=== PATIENT | female | born 1925 | race Caucasian/White ===

== ENCOUNTER 2016-07-19 22:10 | Emergency (ER) | payer MEDICARE, OTHER ==
[2016-07-19 20:07] LABS: BASOPHILS 1.2 %; BASOPHILS ABSOLUTE 0.04 10/3/uL (0.0-0.16); EOSINOPHILS 1.4 %; EOSINOPHILS ABSOLUTE 0.05 10/3/uL (0.0-0.53); ER CBC TAT 0 Hrs 05 Mins; HEMATOCRIT 40.6 % (36.0-48.0); HEMOGLOBIN 13.9 g/dL (12.0-16.0); IMMATURE GRANULOCYTES 0.3 %; IMMATURE GRANULOCYTES ABSOLUTE 0.01 10/3/uL (0.0-0.11); LYMPHOCYTES 20.6 %; LYMPHOCYTES ABSOLUTE 0.71 10/3/uL (0.67-4.30); MEAN CORPUS HGB CONC 34.2 g/dL (32.0-36.0); MEAN CORPUSCULAR HEMOGLOB 34.2 pg (26.0-34.0); MEAN PLATELET VOLUME 9.7 fL (9.2-13.0); MONOCYTES 12.2 %; MONOCYTES ABSOLUTE 0.42 10/3/uL (0.21-1.20); NEUTROPHILS 64.3 %; NEUTROPHILS ABSOLUTE 2.22 10/3/uL (2.02-8.40); WHITE BLOOD CELLS 3.5 10/3/uL (4.5-10.5)
[2016-07-19 20:08] LABS: MANUAL DIFF NO %; MEAN CORPUSCULAR VOLUME 99.8 fL (80-100); PLATELET COUNT 269 10/3/uL (150-400); RED CELL COUNT 4.07 10/6/uL (4.0-5.6)
[2016-07-19 20:18] LABS: PARTIAL THROMBO TIME 26.2 SEC (22.5-37.2); PROTIME (NOT ORD) 13.1 SEC (12.0-14.5)
[2016-07-19 20:26] LABS: BUN (BLOOD UREA NITROGEN) 18 MG/DL (6-23); CALCIUM, SERUM 9.2 MG/DL (8.5-10.4); CHEST PAIN PROFILE TAT 0 Hrs 24 Mins; CHLORIDE, SERUM 103 MMOL/L (96-112); CO2 (CARBON DIOXIDE) 29 MMOL/L (24-34); CREATININE 0.95 MG/DL (0.55-1.02); GFR AFRICAN AMERICAN 62 ML/MIN (>=60); GFR NON AFRICAN AMERICAN 53 ML/MIN (>=60); POTASSIUM, SERUM 4.2 MMOL/L (3.5-5.3); SODIUM, SERUM 141 MMOL/L (135-148); TROPONIN I <0.02 NG/ML (<0.05)
[2016-07-19 20:28] LABS: GLUCOSE, SERUM 104 MG/DL (60-99)
[~2016-07-19 22:10] MED LIST: ACET500CAP PO; CALTRA600D PO; CITRACAL PO; METAMUCIL CAN7 OZ PO; T PO
[2016-10-09] MEDS ORDERED: COZAAR100 MG PO (15:03)
[2016-10-09] MEDS ORDERED: K500 PO (15:03)
[2016-10-09] MEDS ORDERED: ULTRAM50 PO (15:04)
[2016-10-09] MEDS ORDERED: NEO-OINT15 TOP (15:04)
[2016-10-09] MEDS ORDERED: PREVALITE4 G1 PO (15:04)
[2016-10-09] MEDS ORDERED: CAT1 PO (15:05)
== END 2016-07-19 22:20 | disposition home or self-care (01) ==
LOC: ER 22:10
PROVIDERS: Nurse Practitioner Acute Care
DX: I10 Essential (primary) hypertension (principal); Z79.899 Other long term (current) drug therapy; M81.0 Age-related osteoporosis without current pathological fracture; Z91.013 Allergy to seafood
CPT/HCPCS: 71010; 80048; 83735; 84484; 85025; 85610; 85730; 93005; 96365; 96374; 96376; 99284; J0360; J3489